=== PATIENT | male | born 1955 | race Caucasian/White ===

== ENCOUNTER 2017-05-18 08:44 | Observation (INO) | payer OTHER ==
[~2017-05-18] VITALS: Ht 167.6 cm; Wt 90.2 kg
[~2017-05-18 08:44] MED LIST: Coreg PO; Coumadin,Jantoven PO; FUROSEMIDE40 MG PO; Folvite PO; HTN MED; Habitrol,Nicoderm CQ TD; LIDODERM 5% P1 PATCH TD; Lasix PO; Nitrostat,NitroQuick SL; Protonix PO; Proventil,Ventolin H IH; Robitussin, Organidi PO; Thiamine,Vitamin B1 PO; Zestril,Prinivil PO; oxyCODONE PO
[2017-05-18 10:16] LABS: BASOPHIL COUNT 0.1 K/uL (0-0.1); EOSINOPHIL (%) 1.9 % (0-5); EOSINOPHIL COUNT 0.2 K/uL (0-0.3); HEMATOCRIT 41.4 % (38.0-50.0); HEMOGLOBIN 13.9 G/DL (12.5-16.6); IMMATURE GRANULOCYTE (%) 0.5 % (0.0-0.7); LYMPHOCYTE (%) 33.6 % (15-42); LYMPHOCYTE COUNT 3.4 K/uL (1.0-2.8); MCH 30.5 PG (29.0-34.0); MCHC 33.6 G/DL (30.0-36.0); MCV 90.8 FL (86-99); MONOCYTE (%) 16.2 % (3-12); MONOCYTE COUNT 1.6 K/uL (0-0.8); NEUTROPHIL (%) 46.8 % (45-76); NEUTROPHIL COUNT 4.7 K/uL (1.8-6.4); PLATELET COUNT 188 K/uL (156-360); RBC DIS.WIDTH-CV 13.3 % (11.8-14.6); RBC DIS.WIDTH-SD 44.8 % (39-53); RED BLOOD COUNT 4.56 M/uL (4.00-5.50); WHITE BLOOD COUNT 10.1 K/uL (4.1-10.2)
[2017-05-18 10:36] LABS: TROP-I INTERPRETATION NEGATIVE; TROPONIN-I < 0.01 ng/mL (0.0-0.30)
[2017-05-18 10:58] LABS: CHLORIDE 93 MEQ/L (99-109); CREATININE 0.8 MG/DL (0.6-1.3); GFR ESTIMATE (CALCULATED) > 59 mL/min/ (58.99-99999); GLUCOSE 96 mg/dL (70-99); POTASSIUM 4.3 MEQ/L (3.7-5.4); SODIUM 123 MEQ/L (136-147); UREA NITROGEN (BUN) 10 mg/dL (9-23)
[2017-05-18] MEDS ORDERED: LASIX80 MG PO (12:57)
[2017-05-18] MEDS ORDERED: COREG25 M1 PO (12:57)
[2017-05-18] MEDS ORDERED: VENTOLIN HFA18 GM IH (12:57)
[2017-05-18] MEDS ORDERED: ZESTRIL20 MG PO (12:58)
[2017-05-18] MEDS ORDERED: ALDACTONE50 MG PO (12:58)
[2017-05-18] MEDS ORDERED: NITROSTAT0.4 MG SL (12:58)
[2017-05-18] MEDS ORDERED: COUMADIN4 MG PO (12:59)
[2017-05-18] MEDS ORDERED: COUMADIN3 MG PO (13:00)
[2017-05-18] MEDS ORDERED: LO-DOSE ASPIRIN81 M2 PO (13:00)
[2017-05-18] MEDS ORDERED: DIGOX250 MCG PO (13:00)
[2017-05-18] MEDS ORDERED: PRAVACHOL40 MG PO (13:00)
[2017-05-18] MEDS ORDERED: ROXICODONE5 MG PO (13:01)
[2017-05-18 15:09] LABS: INTER. NORMALIZED RATIO 4.6
[2017-05-18 18:00] VITALS: BP 149/65
[2017-05-18 19:27] VITALS: BP 135/63
[2017-05-18 23:50] VITALS: BP 125/74
[2017-05-19 06:02] LABS: HEMATOCRIT 39.2 % (38.0-50.0); MCH 30.2 PG (29.0-34.0); MCHC 33.2 G/DL (30.0-36.0); MCV 91.2 FL (86-99); PLATELET COUNT 190 K/uL (156-360); RBC DIS.WIDTH-CV 13.4 % (11.8-14.6); RBC DIS.WIDTH-SD 45.1 % (39-53); WHITE BLOOD COUNT 7.6 K/uL (4.1-10.2)
[2017-05-19 06:33] LABS: ALBUMIN 3.7 G/DL (3.2-4.8); ALKALINE PHOSPHATASE 57 IU/L (3-129); ALT (GPT) 17 IU/L (3-49); AST (GOT) 19 IU/L (2-34); CHLORIDE 98 MEQ/L (99-109); CREATININE 0.9 MG/DL (0.6-1.3); DIRECT BILIRUBIN 0.1 mg/dL (0.0-0.3); GFR ESTIMATE (CALCULATED) > 59 mL/min/ (58.99-99999); GLUCOSE 141 mg/dL (70-99); POTASSIUM 4.4 MEQ/L (3.7-5.4); SODIUM 127 MEQ/L (136-147); TOTAL BILIRUBIN 0.4 MG/DL (0.0-1.0); TOTAL PROTEIN 7.2 G/DL (6.4-8.3); UREA NITROGEN (BUN) 15 mg/dL (9-23)
[2017-05-19 06:57] LABS: INTER. NORMALIZED RATIO 2.9
[2017-05-19 08:26] VITALS: BP 171/77
[2017-05-19] MEDS ORDERED: INCRUSE ELLI62.5 MCG IH (11:47)
[2017-05-19] MEDS ORDERED: MUCINEX600 MG PO (11:47)
[2017-05-19] MEDS ORDERED: DUONEB 2.5-0.5 M3 ML AEROSOL (11:47)
[2017-05-19] MEDS ORDERED: ADVAIR HFA120 INHALA IH (11:47)
[2017-05-19] MEDS ORDERED: THERAGRAN1 TABLET PO (11:47)
[2017-05-19] MEDS ORDERED: AZITHROMYCIN250 MG PO (11:47)
[2017-05-19] MEDS ORDERED: MEDROL DOSEPAK4 MG PO (11:47)
[2017-05-19] MEDS ORDERED: VENTOLIN HFA18 GM IH (11:47)
[2017-05-19 12:11] VITALS: BP 128/68
== END 2017-05-19 15:31 | disposition home or self-care (01) ==
LOC: EME 08:44 → EDOF 13:55 → 5WEST 13:55 → EDOF 13:55 → ENRESERV 13:57 → 5WEST 17:18
PROVIDERS: Emergency Medicine; Physician Assistant
DX: J44.1 Chronic obstructive pulmonary disease with (acute) exacerbation (principal); I42.6 Alcoholic cardiomyopathy; Z95.810 Presence of automatic (implantable) cardiac defibrillator; E87.1 Hypo-osmolality and hyponatremia; F10.20 Alcohol dependence, uncomplicated; F17.210 Nicotine dependence, cigarettes, uncomplicated; I11.0 Hypertensive heart disease with heart failure; I50.9 Heart failure, unspecified; Z86.74 Personal history of sudden cardiac arrest; K70.30 Alcoholic cirrhosis of liver without ascites; Z82.49 Family history of ischemic heart disease and other diseases of the circulatory system; Z79.01 Long term (current) use of anticoagulants; Z79.82 Long term (current) use of aspirin; I48.91 Unspecified atrial fibrillation; D68.9 Coagulation defect, unspecified; I25.10 Atherosclerotic heart disease of native coronary artery without angina pectoris; I73.9 Peripheral vascular disease, unspecified
CPT/HCPCS: 71046; 80048; 80076; 83735; 83930; 83935; 84300; 84484; 85025; 85027; 85610; 87502; 93005; 94640; 94640 76; 94644; 94760; 99202; 99281; 99285; G0378; J0456; J2930; J7030; J7512